=== PATIENT | female | born 1975 | race Caucasian/White ===

== ENCOUNTER 2018-07-20 11:06 | Day surgery (SDC) | payer OTHER ==
--- NOTE | 2018-07-20 06:43 | History and Physical - [facility] ---
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 Due to the failure of all therapies, she is here for an implanted spinal infusion trial using Hydromorphone to determine if the implantation of a permanent system can be of any value in pain control. PAST MEDICAL HISTORY: Asthmatic bronchitis and chronic headaches. PAST SURGICAL HISTORY: Lumbar spinal surgery and section. MEDICATIONS ON ADMISSION: List to be provided. ALLERGIES: SULFA. FAMILY/PSYCHOSOCIAL HISTORY: Social history - Caffeine. Family history - Asthma and cancer. SYSTEMS REVIEW: The patient seems appropriate in no acute distress. PHYSICAL EXAMINATION: Height is 5'3", weight is 130. No vital signs. HEENT: Within normal limits. LUNGS: Clear. HEART: Rapid and regular. ABDOMEN: Nontender. MUSCULOSKELETAL: Examination of the musculoskeletal system shows diffuse tenderness throughout the lumbar spine. Laminectomy scar noted. Lower extremity function shows pain down the left leg across a L5-S1 pattern consistent with the level of spinal surgery. There are mild sensory loss and mild motor weakness to the left leg. Ambulation - No assistive device utilized. NEUROLOGIC: Cranial nerves are intact. IMPRESSION: POST LUMBAR LAMINECTOMY SYNDROME, ICD-10 CODE M96.1 WITH RADICULOPATHY, ICD-10 CODE M54.16 AND M54.17. PLAN: The patient is here for an implanted spinal catheter infusion trial using Hydromorphone to determine if the implantation of a permanent system can be of any value in pain control. Although on an outpatient based procedure, she may be kept overnight for observation. An epidural blood patch will be performed which requires four hours flat and slowly elevate over one. Risks, side effects, and potential complications have all been carefully reviewed and discussed. Information provided through the bundle sorter have been reviewed and discussed. JOB NUMBER: [id number] MTDD
[~2018-07-20 11:06] MED LIST: ACETAMINOPHEN 1,000 MG/100 ML BTL IV ONE; CEFAZOLIN 2 Gram 2 GM/50 ML BAG IVPB ONE; FAMOTIDINE 20MG TABLET PO ONE; HYDROMORPHONE PF 2MG/ML AMP 0.008 MG in 0.9 % SODIUM CHLORIDE 10ML VIA 0.996 ML IV ONE; HYDROMORPHONE PF 2MG/ML AMP 8 MG in 0.9 % SODIUM CHLORIDE 500ML 496 ML IV ONE; MECLIZINE 25 MG TABLET PO ONE; METOCLOPRAMIDE 10 MG TABLET PO ONE
[2018-07-20] MEDS ORDERED: MIDAZOLAM HCL 2MG/2ML VIAL IV ONE (11:07)
[2018-07-20] MEDS ORDERED: CEFAZOLIN 1G VIAL IM ONE (11:07)
[2018-07-20] MEDS ORDERED: BUPIVACAINE 0.5% W/EPI MPF 30 ML VIAL IVP ONE (11:07)
[2018-07-20] MEDS ORDERED: HYDROMORPHONE HCL 2 MG/ML VIAL IV ONE (11:07)
[2018-07-20] MEDS ORDERED: 0.9 % SODIUM CHLORIDE 10 ML VIAL IVP ONE (11:07)
[2018-07-20] MEDS ORDERED: LIDOCAINE 2% MDV (20MG/ML) 20ML VIAL IV ONE (11:07)
[2018-07-20] MEDS ORDERED: PROPOFOL 10 MG/ML VIAL IV ONE (11:07)
[2018-07-20] MEDS ORDERED: LIDOCAINE 1% W/EPI 1:200,000 MPF 30ML SQ ONE (11:07)
[2018-07-20] MEDS ORDERED: NALOXONE 0.4 MG/1 ML VIAL IVP PRN (15:02)
[2018-07-20] MEDS ORDERED: SENNOSIDES/DOCUSATE SODIUM UD CAPSULE PO PRN ×2 (15:02)
[2018-07-20] MEDS ORDERED: METOCLOPRAMIDE 10 MG TABLET PO PRN (15:02)
[2018-07-20] MEDS ORDERED: HYDROCODONE/APAP 7.5/325MG TABLET PO PRN ×2 (15:02)
[2018-07-20] MEDS ORDERED: TEMAZEPAM 15 MG CAPSULE PO PRN ×2 (15:02)
[2018-07-20] MEDS ORDERED: METOCLOPRAMIDE HCL 10 MG/2 ML VIAL IVP PRN (15:02)
[2018-07-20] MEDS ORDERED: HYDROMORPHONE HCL 2 MG/ML VIAL IM PRN ×2 (15:02)
[2018-07-20] MEDS ORDERED: AL HYDROX/MAG HYDROX 30ML UD PO PRN (15:02)
[2018-07-20] MEDS ORDERED: OXYCODONE/APAP 10MG-325MG TABLET PO PRN ×2 (15:02)
[2018-07-20] MEDS ORDERED: RINGERS SOLUTION,LACTATED 1,000 ML IV SCH (15:02)
[2018-07-20] MEDS ORDERED: DIPHENHYDRAMINE HCL 50 MG/ML VIAL IVP PRN ×2 (15:02)
[2018-07-20] MEDS ORDERED: ACETAMINOPHEN 325 MG TAB PO PRN ×2 (15:02)
[2018-07-20] MEDS ORDERED: DIPHENHYDRAMINE HCL 25 MG CAPSULE PO PRN ×2 (15:02)
[2018-07-20] MEDS ORDERED: ALBUTEROL HFA 8 GM INHALER INH PRN (15:04)
[2018-07-20] MEDS ORDERED: ALPRAZOLAM 0.25 MG TABLET PO PRN (15:04)
[2018-07-20] MEDS ORDERED: GABAPENTIN 300 MG CAPSULE PO SCH (16:00)
[2018-07-20] MEDS ORDERED: SUMATRIPTAN 6 MG/0.5 ML VIAL SQ PRN (16:45)
[2018-07-20] MEDS ORDERED: CEFAZOLIN 2 Gram 2 GM/50 ML BAG IVPB SCH (20:30)
[2018-07-20] MEDS ORDERED: DIAZEPAM 5 MG TABLET PO SCH (22:00)
[2018-07-21] MEDS ORDERED: QUETIAPINE FUMARATE 25 MG TABLET PO SCH (22:00)
--- NOTE | 2018-07-23 11:35 | Operative Note ---
DATE: 07/20/2018. PRIMARY CARE PHYSICIAN: Rico Hood M.D. PREOPERATIVE DIAGNOSIS: 1. 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 2. RADICULOPATHY, ICD-10 CODE M54.16 AND M54.17. PREOPERATIVE DIAGNOSIS: 1. 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 2. RADICULOPATHY, ICD-10 CODE M54.16 AND M54.17. PROCEDURES: 1. Fluoroscopically guided access spinal space left at L3-4. Placement of thin -walled spinal catheter at midline T11. 2. Diagnostic myelography with radiologic supervision and interpretation. 3. Bolus of hydromorphone into the spinal space 0.006 mg. 4. Incision, subcutaneous dissection, and anchoring of spinal catheter to supraspinous fascia with anchoring device and nonabsorbable suture. 5. Incision, subcutaneous dissection, and creation of subcutaneous pouch at the right posterior gluteal margin, the site ultimately chosen for the pump. Small pouch formed subcutaneously. 6. Tunneling midline spinal catheter into right pouch. Interfaced with second catheter component by way of a connector. The second catheter component tunneled 6.0 cm superior exiting the skin. 7. External catheter interfaced to external pump set to deliver hydromorphone at 0.08 mg per day. 8. Epidural blood patch at L4-5, with 15 mL autologous blood drawn with sterile technique, left antecubital after 18-gauge access. SURGEON: Taqueria Cheung D.O. ANESTHESIA: Local sedation. ANESTHESIA PROVIDER: Judy Garcia CRNA. INDICATIONS: This patient presents with a history of an intractable postlumbar laminectomy. Due to the failure of all therapies including a spinal cord stimulator trial with an intractable postlaminectomy radiculopathy, the patient is here for an implanted spinal catheter infusion trial with hydromorphone to determine if the implantation of a permanent system can be of any value in pain control. DESCRIPTION OF PROCEDURE: Intravenous lines, vital sign monitoring, and intravenous sedation by Anesthesia. The patient was positioned prone. Prepped and draped with sterile technique. Local with x-ray for guidance. After the prep using sterile technique and under imaging the spinal interspace at 3-4 was identified and marked. The skin was infiltrated. An 18-gauge spinal needle, through a paramedian approach, beveled with long axis, was inserted into the space using AP and lateral imaging. The needle was advanced on lateral image. With cerebrospinal fluid flow, a thin-walled spinal catheter was advanced and positioned at T11. Diagnostic myelography confirmed appropriate flow characteristics in the spinal space. Cerebrospinal fluid was still noted through the catheter. The catheter was clamped. The skin above and below the needle was infiltrated. An incision was made and subcutaneous dissection was conducted to the supraspinous fascia. The needle was removed, and the catheter was anchored to the supraspinous fascia with an anchor and nonabsorbable suture. The catheter still had cerebrospinal fluid flowing through it. It was clamped to stop cerebrospinal fluid leak. At the right posterior gluteal margin, which was the site ultimately chosen for placement of the pump, the skin was infiltrated. An incision was made and subcutaneous dissection was conducted to form a small, subcutaneous pouch. With the spinal catheter at the midline, it was then tunneled to the posterior gluteal pouch. At that pouch it was then interfaced with a second catheter component by way of a connector. The second catheter component was then tunneled 6.0 cm superior exiting the skin. The second catheter component was then interfaced to an external pump which was set to deliver hydromorphone at 0.08 mg a day. The midline incision was then closed with Stratafix suture; #2-0 for the fascia and #3-0 for the skin. The posterior gluteal pouch incision was closed with running nylon. At L4-5, which was one level below the spinal access, the skin was infiltrated. An 18-gauge Tuohy needle was entered into the epidural space with loss-of- resistance technique. Simultaneously 15 mL of autologous blood was drawn using sterile technique from the left antecubital area and was placed onto the field. An epidural blood patch was then performed at this level with this blood. Dressings were placed securing incisions and all catheter connections under sterile dressing. She was transported to the recovery room flat with a pillow under the head and knees. There were no side effects from the procedure. She had full functionality of the extremities and no unusual pain pattern. She will be kept flat for four hours and then slowly elevated for one hour. She will then be evaluated for an overnight stay or will be discharged home which is her request. DISCHARGE INSTRUCTIONS: 1. The site to remain clean and dry. No showering or bathing in any way that would disrupt the dressings. If this happens, contact the clinic. 2. Standard medications to be resumed including the antibiotic Levaquin 500 mg once a day for 14 days. 3. The trial is scheduled for two weeks. Three increases will be scheduled at the office. Her first increase will be made as soon as this Wednesday. At the end of the trial period, we will either implant the pump or remove the catheter. 4. She has been advised as to possible side effects including respiratory depression, nausea, vomiting, constipation, urinary retention, lightheadedness, and rash. 5. She was then prepared for discharge. JOB NUMBER: [id number] cc: Rico Hood M.D. VIC
--- NOTE | 2018-07-24 12:52 | RADIOLOGY REPORT ---
EXAM: SPINE, 1 VIEW HISTORY: SPINAL CATHETER IMPLANT. TECHNIQUE: A single frontal view of the thoracolumbar spine. COMPARISON: None. FINDINGS: A thin catheter is noted with the tip superimposing the lower thoracic spine. Please see operative report for additional details. Moderate to large volume of stool throughout the visualized colon. IMPRESSION: ABOVE. JOB NUMBER: [id number] MTDD
== END 2018-07-20 20:20 | disposition home or self-care (01) ==
LOC: SUR 11:06 → MEDSURG 15:24 → SUR 20:20
PROVIDERS: ATTEND Pain Medicine Interventional Pain Medicine
DX: M96.1 Postlaminectomy syndrome, not elsewhere classified (principal); M54.16 Radiculopathy, lumbar region; M54.17 Radiculopathy, lumbosacral region; J45.909 Unspecified asthma, uncomplicated
CPT/HCPCS: 62350; 62362; 01936; 72020; Q9967; J1170 ×2; J0690; J7040; J7120

== ENCOUNTER 2018-08-03 08:30 | Day surgery (SDC) | payer OTHER ==
--- NOTE | 2018-08-03 06:24 | History and Physical - [facility] ---
CHIEF COMPLAINT/HISTORY OF CHIEF COMPLAINT: This patient presents with a history of intractable post lumbar laminectomy radiculopathy. Due to the failure of all therapies a spinal infusion trial with Hydromorphone with implanted catheter technique has been utilized. At this point she has achieved 75-80% pain control. She has improved functionality and mobility. According to the patient this is the best pain control she has ever had. Due to the failure of all other previous therapies and the success of the trial upon her request she is presenting for implantation of a permanent system. PAST MEDICAL HISTORY: Unchanged. PAST SURGICAL HISTORY: Unchanged. MEDICATIONS ON ADMISSION: Unchanged. ALLERGIES: SULFA. FAMILY/PSYCHOSOCIAL HISTORY: Family history - Unchanged. Social history - Unchanged. SYSTEMS REVIEW: Unchanged. PHYSICAL EXAMINATION: Height is 5'3", weight is 130. HEENT: Within normal limits. LUNGS: Clear. HEART: Rapid and regular. ABDOMEN: Nontender. MUSCULOSKELETAL: Examination of the musculoskeletal system shows the dressings for the implanted catheter technique in place. The external pump is infusing appropriately. Her underlying pain pattern is low back with a bilateral lower extremity left greater than right. Motor and sensory field evaluation show pain with mild sensory, but no weakness into the extremities. Ambulation - No assistive device utilized. NEUROLOGIC: Cranial nerves are intact. IMPRESSION: POST LUMBAR LAMINECTOMY SYNDROME, ICD-10 CODE M96.1 WITH LUMBAR RADICULOPATHY, ICD-10 CODE M54.16 AND M54.17. PLAN: The patient is here today for implantation of a permanent system. The procedure will be considered outpatient, although an overnight stay will be evaluated. JOB NUMBER: [id number] MTDD
[~2018-08-03 08:30] MED LIST changes: +HYDROMORPHONE HCL 0.04 GM in 0.9 % SODIUM CHLORIDE 10ML VIA 20 ML IV ONE; -HYDROMORPHONE PF 2MG/ML AMP 8 MG in 0.9 % SODIUM CHLORIDE 500ML 496 ML IV ONE
[2018-08-03] MEDS ORDERED: MIDAZOLAM HCL 2MG/2ML VIAL IV ONE (08:31)
[2018-08-03] MEDS ORDERED: PROPOFOL 10 MG/ML VIAL IV ONE (08:31)
[2018-08-03] MEDS ORDERED: 0.9 % SODIUM CHLORIDE 10 ML VIAL IVP ONE (08:31)
[2018-08-03] MEDS ORDERED: LIDOCAINE 2% MDV (20MG/ML) 20ML VIAL IV ONE (08:31)
[2018-08-03] MEDS ORDERED: CEFAZOLIN 1G VIAL IM ONE (08:31)
[2018-08-03] MEDS ORDERED: KETAMINE HCL 100MG/1ML VIAL INJ ONE (08:31)
[2018-08-03] MEDS ORDERED: BUPIVACAINE 0.5% W/EPI MPF 30 ML VIAL IVP ONE (08:31)
[2018-08-03] MEDS ORDERED: HYDROCODONE/APAP 7.5/325MG TABLET PO ONE (08:31)
[2018-08-03] MEDS ORDERED: LIDOCAINE 1% W/EPI 1:200,000 MPF 30ML SQ ONE (08:31)
--- NOTE | 2018-08-05 07:16 | Operative Note ---
DATE: 08/03/2018. PREOPERATIVE DIAGNOSES: 1. POST LUMBAR LAMINECTOMY SYNDROME, ICD-10 CODE M961. 2. RADICULOPATHY ICD-10 CODE M54.16 AND M54.17. 3. IMPLANTED SPINAL CATHETER INFUSION TRIAL WITH HYDROMORPHONE. POSTOPERATIVE DIAGNOSES: 1. POST LUMBAR LAMINECTOMY SYNDROME, ICD-10 CODE M961. 2. RADICULOPATHY ICD-10 CODE M54.16 AND M54.17. 3. IMPLANTED SPINAL CATHETER INFUSION TRIAL WITH HYDROMORPHONE. ANESTHESIA: Local sedation. ANESTHESIA PROVIDER: Nico Fischer CRNA. PROCEDURES: 1. Fluoroscopically guided incision, subcutaneous dissection, and creation of subcutaneous pouch at right posterior gluteal margin for placement of pump identified as a Medtronic 20 mL programmable pump. 2. Resection, sectioning, and removal of external spinal catheter by cutting connector interface spinal to external and removing external catheter by pulling away from the incision. 3. Revision of internal permanent spinal catheter with connector and secondary catheter component. 4. Interface secondary revised catheter with pump placed onto the field filled with hydromorphone 2.0 mg per mL. Interface with revised catheter. 5. Placement of pump/catheter combination into pouch formed at right posterior gluteal margin securing to posterior fascia with nonabsorbable suture at three points with pump eyelets. 6. Placement of curved 24-gauge Aguilera needle into access port programmable pump , aspirating and clearing catheter of opioid and cerebrospinal fluid mixture. 7. Injection of contrast through access port. Resulting myelogram with radiologic supervision and interpretation confirming full functionality and integrity of the catheter and pump. 8. Closure of incision using Stratafix suture; #2-0 for the fascia and #3-0 for the skin. 9. Programming of pump to deliver by continuous infusion hydromorphone at 0.45 mg per day. SURGEON: Taqueria Cheung D.O. ANESTHESIA: Local sedation. ANESTHESIA PROVIDER: Judy Garcia CRNA. INDICATIONS: This patient presents with a history of intractable postlumbar laminectomy radiculopathy. Due to the failure of all therapies, an implanted spinal catheter infusion trial with hydromorphone was conducted with greater than 75 percent pain control. Due to the failure of all previous therapies and the success of the trial, by her request she is presents for implantation of a permanent system. Her end-trial dose was 0.32 mg a day. DESCRIPTION OF PROCEDURE: Intravenous lines, vital sign monitoring, and intravenous sedation by Anesthesia with the patient positioned prone. Prepped and draped with sterile technique. The external dressing was all removed. At the right posterior gluteal margin, the site initially picked by the patient for the pump, the skin was infiltrated and an incision was made. Subcutaneous dissection was conducted to form a pouch of suitable size and depth for the pump , a Medtronic 20 mL programmable pump. The external catheter interface to the permanent indwelling catheter was clamped and cut. The external catheter was removed by pulling away from the incision. The indwelling permanent catheter was the resected and revised with a second catheter component by way of connector. A 20 mL programmable pump was placed onto the field filled with hydromorphone at 2.0 mg per mL. The revised catheter was then interfaced to the pump. Antibiotic irrigation and Bovie for hemostasis. The pump was placed into the pouch and secured to the posterior fascia with nonabsorbable suture at three points with pump eyelets. A curved 24-gauge Aguilera needle was inserted into the access port and 1.0 mL of catheter contents was aspirated clearing the catheter of opioid and cerebrospinal fluid mixture. Contrast was injected through the access port. The resulting myelogram with radiologic supervision and interpretation showed contrast moving through the internal pump. The pump catheter connection was then visualized. There were no kinks or leaks. The tip of the catheter at T11 was identified with appropriate flow characteristics noted, confirming full functionality of the system. With the pump in the pouch, the incision was closed using Stratafix suture with #2-0 for the fascia and #3-0 for the skin. Dermabond closure was used to approximate the edges of both wounds. The pump was then programmed to deliver by continuous infusion hydromorphone at 0.45 mg per day. All alarms were set into the system. She was then transported to the recovery room stable once the Dermabond dressing had been applied. She was stable with no side effects from the procedure or the sedation. She was requesting discharge home. DISCHARGE INSTRUCTIONS: 1. The site will remain clean and dry clean and dry. Although the Dermabond will allow showering, she should not sit in the tub. 2. Standard medications to be resumed. She will continue the Levaquin antibiotic for seven more days. 3. The potential side effects from spinal opioids including respiratory depression, nausea, vomiting, constipation, urinary retention, light headedness , and rash have been reviewed and discussed. 4. The office will contact the patient within the next 24 to 48 hours to set up a time in the next 7 to 10 days so we can look at the incisional site. Until then she is to keep the Dermabond dressing in place. She may trim the edges but do not pull the dressing off. Should it come off, she is to contact the clinic for replacement. 5. All other instructions were provided including numbers to contact with problems. She was then discharged. JOB NUMBER: [id number] cc: Rico Hood M.D. MTDD
== END 2018-08-03 11:59 | disposition home or self-care (01) ==
LOC: SUR 08:30
PROVIDERS: ATTEND Pain Medicine Interventional Pain Medicine
DX: M96.1 Postlaminectomy syndrome, not elsewhere classified (principal); M54.16 Radiculopathy, lumbar region; M54.17 Radiculopathy, lumbosacral region; G62.9 Polyneuropathy, unspecified
CPT/HCPCS: 62350; 62362; 01936; 62367; Q9967; J0690; J1170; J3490; C1755; C1776